=== PATIENT | male | born 1980 | race African-American/Black ===

== ENCOUNTER → 2016-04-21 | Outpatient (CLI) | payer BC ==
[~2016-04-21] MED LIST: HYDR-2672 PO; IOHEXOL 180 MG/ML 10 ML VIAL. ONE; methylPREDNISolone ACETATE 40 MG/ML VIAL. ONE; methylPREDNISolone ACETATE 80 MG/ML VIAL. ONE
--- NOTE | 2016-04-22 21:44 | PAIN ---
DATE OF SERVICE: 04/21/2016 INITIAL CONSULTATION FOR PAIN CLINIC CHIEF COMPLAINT: Low back and left lower extremity pain. HISTORY OF PRESENT ILLNESS: This is a 35-year-old male who presents with history of pain in the low back and left lower extremity for about 1 year, gradually increasing, not a result of any specific injury or action he is aware of, but worse over the past few months, increasing in the back, radiating to posterior gluteus, posterolateral thigh, lateral anterior thigh, posterolateral lower leg to the level of the ankle with sharp pain in the leg and dull aching pain in low back, increased with walking as well as sitting for prolonged periods, greater than 20-30 minutes, as a constant, sharp, shooting, stabbing pain radiating to the left leg, intermittent in intensity, but always present. The patient reports it awakens him from sleep at least once or twice at night because of the pain in the back and in the left leg. It does not affect his bowel and bladder control, but does affect his ability to walk. He occasionally uses a cane in his left hand, but he does not have one with him today. The patient did have an MRI scan of the lumbar spine dated 03/16/2016 showing disk degeneration with disk narrowing and moderate disk diffuse bulging at L4-L5 with the a bilateral inferior foraminal mass effect with mild inferior foraminal encroachment at that level. The patient reports increased fatigability with his left lower extremity. Occasionally, he has pain in the right leg, but only very occasionally. The patient rates his disability rate from 0 to 10, 10 being the worst; 10 with family and home responsibilities, recreation and sexual behavior; 6 with social activity; 4 with occupation; 8 with self care and 7 with life support activities. The patient has not tried any other physical therapies currently. He is doing some stretching and strengthening on his own and trying to walk as much as he can, but he stays very active at work too and he is on his feet most of his working day. He also has been taking hydrocodone, which helps to a moderate extent, about 20-30%, but does not last more than about 2-3 hours. The patient reports no complete motor loss, but again, significant fatigability associated with the left leg with ambulation. PAST MEDICAL HISTORY: Significant for Crohn's disease, torn previous rotator cuff on the right. PREVIOUS SURGERY: Include bowel resection in 2009, secondary to Crohn's disease. CURRENT MEDICATIONS: Include hydrocodone. ALLERGIES: THE PATIENT IS ALLERGIC TO TRAMADOL. No other drug allergies. FAMILY HISTORY: Significant for no major medical problems or conditions that he is aware of. SOCIAL HISTORY: The patient smokes less than 1 pack a day, has for about 5 years. Does not drink alcohol. He has former history of substance abuse. Works at [employer], mostly on his feet during his working day. REVIEW OF SYSTEMS: The patient's review of systems is positive for those items mentioned in history of present illness. All systems reviewed and otherwise negative. It is complete, full and well documented on the patient's chart. PHYSICAL EXAMINATION: VITAL SIGNS: The patient's blood pressure is 108/65, pulse ____, respirations 18, temperature is 98.1 degrees Fahrenheit, height is 5 feet 9 inches, weight 167 pounds. GENERAL: The patient is awake, alert, oriented, appropriate, very pleasant demeanor. HEENT: Head shows normocephalic, atraumatic. Extraocular movements are intact and symmetrical. Oral cavity shows mucous membranes moist and pink. Dentition is intact. NECK: Shows anterior throat supple without palpable lymphadenopathy noted. Swallow reflex is symmetrical. Neck shows full rotational motion of the cervical spine without tenderness or limitation. CHEST: Shows normal on inspection. Breath sounds are clear to auscultation bilaterally. HEART: Shows S1 and S2 clear. No murmurs are auscultated. ABDOMEN: Soft, nontender, nondistended. No palpable organomegaly. No rebound or guarding demonstrated. BACK: The patient's back shows spine grossly midline, normal-appearing cervical lordotic curvature, thoracic kyphotic curvature, and lumbar lordotic curvature. No previous bruises, lesions, rashes, or scars are noted. The patient's lumbar paraspinous musculature shows symmetrical on inspection without evidence of atrophy, hypertrophy with palpation, shows some moderate tenderness with palpation in the lower lumbar distribution and in the mid lumbar distribution but only diffusely and only to a moderate extent without radiation. No trigger points, no asymmetry, no tenderness over the spinous processes themselves. No tenderness over the sacrum or sacroiliac regions. The patient shows good rotational motion of lumbar spine, both laterally, greater than 10 degrees, right and left as well as extension greater than 10 degrees, forward flexion greater than 45 degrees without significant pain reported. EXTREMITIES: The patient's lower extremities show deep tendon reflexes at 2+ in the patellar, 1+ tendo-calcaneus tendons are equal. Motor exam is strong with 5/5 dorsiflexion, extension, quadriceps and hamstring flexion and are symmetrical as well. Peripheral pulses are 1+ in the posterior tibial and dorsalis pedis pulses. No peripheral edema is noted. No clubbing, no cyanosis. Lower extremities are warm and dry to touch, equal in color and appearance. The patient's straight leg raise noted to be positive mildly at about 45 degrees on the left side, which is decreased with knee flexion, right side is negative. Gaenslen's and Alexis's maneuvers are negative bilaterally as well. The patient is able to stand, stand on his toes, but loses balance when putting all his weight on his left foot and walks with a slight shuffling gait, slightly favoring the left lower extremity in a small limp fashion with ambulation, not using any assistive devices on his visit today. IMPRESSION: 1. This is a 35-year-old male with approximately 1 year history of increasing pain in low back, left lower extremity in radicular fashion. 2. MRI scan of lumbar spine as noted. 3. Cigarette smoking. 4. History of Crohn's disease. PLAN: Options were discussed with the patient including conservative medical management, physical therapy, interventional techniques. He would like to pursue interventional techniques. We discussed a lumbar epidural steroid injection using description as well as anatomical models to describe the procedure. Risks were then discussed including, but not limited to bleeding, infection, possibility of epidural hematoma, subsequent neurologic compromise, dural punctures, headaches, spinal cord and/or nerve damage, side effects of steroid medication and poor results regarding pain control. The patient understands and wishes to proceed. The patient will return to clinic in approximately 2 weeks for followup. He was counseled on return appointment, activity level, and side effects to be aware of. DIAGNOSES: Lumbar radiculopathy with lumbar degenerative disk disease. PROCEDURES: Lumbar epidural steroid injection in translaminar approach at the L4-L5 level using C-arm fluoroscopic guidance under sterile prep and drape using local anesthetic. Medications injected are 120 mg Depo-Medrol plus 10 mL of preservative-free normal saline and 2 mL of Isovue for contrast. CONDITION AT DISCHARGE: Stable. The patient tolerated procedure well, had no complications. CHAPO SMITH MD DR: FELECIA/joyce JOB#: [id number] / [id number] Milla Avila
== END | disposition home or self-care (01) ==
LOC: PNCL 14:03
PROVIDERS: ATTEND Anesthesiology
DX: M51.16 Intervertebral disc disorders with radiculopathy, lumbar region (principal); F17.210 Nicotine dependence, cigarettes, uncomplicated
CPT/HCPCS: 62323; J1030; J1040

== ENCOUNTER → 2016-06-09 | Outpatient (CLI) | payer BC ==
--- NOTE | 2016-06-10 01:46 | PAIN ---
DATE OF SERVICE: 06/09/2016 PROGRESS NOTE FOR PAIN CLINIC DIAGNOSES: Lumbar radiculopathy with lumbar degenerative disk disease. HISTORY OF PRESENT ILLNESS: The patient is a 36-year-old male who returns for followup status post lumbar epidural steroid injection times 1. The patient reports he did very well, about 50% improvement overall in his low back and bilateral lower extremity pain, still worse on the left than right, but is feeling pain in both legs currently. The patient reports it is anywhere from a 2 to an 8 on a scale of 10, currently an 8 on a scale of 10 today, worsening with increased activity, standing, walking. The patient reports no new motor or sensory deficits; however, still stabbing, sharp unbearable pain that is constant in effect as well in the low back, bilateral lower extremities, mostly in the lateral aspect of the thighs, anterior thighs, posterior thighs, medial thighs and lower legs on the posterior and medial aspect. The patient reports no new motor or sensory deficits, no new bowel or bladder incontinence or other complaints. PHYSICAL EXAMINATION: VITAL SIGNS: Today, the patient's blood pressure 113/66, pulse 74, respirations are 18, temperature is 98.4 degrees Fahrenheit. Height is 5 feet 9 inches, weight is 159 pounds. GENERAL: The patient is awake, alert, oriented, appropriate, very pleasant demeanor. HEENT: Shows normocephalic, atraumatic. Extraocular movements are intact and symmetrical. Oral cavity, mucous membranes moist and pink. Dentition is intact. NECK: Shows anterior throat supple, without palpable lymphadenopathy noted. Swallow reflex is symmetrical. CHEST: Shows normal on inspection. Breath sounds are clear to auscultation bilaterally. HEART: Shows S1 and S2 clear. ABDOMEN: Soft, nontender, nondistended. No palpable organomegaly is noted. No rebound or guarding demonstrated. BACK: Shows spine grossly midline. Normal appearing thoracic kyphosis and lumbar lordotic curvature. Lumbar paraspinous musculature shows some mild tenderness to palpation in the lower lumbar distribution, but only mildly and only diffusely without radiation. EXTREMITIES: Lower extremities showed deep tendon reflexes at 2+ in the patellar and tendo calcaneus tendons are 1+, but bilateral motor exam is strong with 5/5 dorsiflexion, extension, quadriceps and hamstring flexion and equal and symmetrical. Options were discussed with the patient. The patient's old chart was reviewed as his current medication regimen updated. Current review of systems updated today as well. We will proceed with a second lumbar epidural steroid injection today with fluoroscopic guidance. Risks were again discussed including, but not limited to bleeding, infection, possibility of epidural hematoma and subsequent neurologic compromise, dural puncture, headaches, spinal cord and/or nerve damage, side effects of steroid medication and poor results regarding pain control. The patient understands and wishes to proceed. The patient will return to the clinic in approximately 2 weeks for followup. He was counseled on return appointment, activity level and side effects to be aware of. DIAGNOSES: Lumbar radiculopathy with lumbar degenerative disk disease. PROCEDURE: Lumbar epidural steroid injection in translaminar approach at the L4-L5 level using C-arm fluoroscopic guidance under sterile prep and drape using local anesthetic. MEDICATION INJECTED: 120 mg Depo-Medrol plus 10 mL of preservative-free normal saline and 2 mL of Isovue for contrast. CONDITION AT DISCHARGE: Stable. The patient tolerated procedure well, had no complications. CHAPO SMITH MD DR: FELECIA/joyce JOB#: [id number] / [id number]
== END | disposition home or self-care (01) ==
LOC: PNCL 14:10
PROVIDERS: ATTEND Anesthesiology
DX: M51.16 Intervertebral disc disorders with radiculopathy, lumbar region (principal)
CPT/HCPCS: 62323; J1030; J1040